=== PATIENT | female | born 1955 | race African-American/Black ===

== ENCOUNTER 2019-09-07 07:29 | Day surgery (SDC) | payer MEDICAID ==
[~2019-09-07] VITALS: Ht 170.2 cm; Wt 102.1 kg
[~2019-09-07 07:29] MED LIST: ACET-2708 PO; ASPI-1393 PO; ATOR10TA69 PO; BIOT5000 PO; CHLO25TA2 PO; CLON0.1T PO; DICL100G31 TP; LOSA100T32 PO; METF-414 PO; NAPR220T66 PO; RANI150T7 PO
[2019-09-07] MEDS ORDERED: CYCLOPENTOLATE HCL 1% OPHTH DROPS 2ML RIGHTEYE ONE (07:30)
[2019-09-07] MEDS ORDERED: TROPICAMIDE 1% OPHTH DROPS 15ML RIGHTEYE ONE (07:30)
[2019-09-07] MEDS ORDERED: PHENYLEPHRINE HCL 10% OPHTH DROPS 5ML RIGHTEYE ONE (07:30)
[2019-09-07] MEDS ORDERED: BALANCED SALT IRRIG SOLN 15ML ONE (08:00)
[2019-09-07] MEDS ORDERED: LIDOCAINE HCL/PF 2% 20 MG/ML 10ML VIAL ONE (08:00)
[2019-09-07] MEDS ORDERED: PREDNISOLONE ACETATE 1% OPHTH DROPS 5ML ONE (08:00)
[2019-09-07] MEDS ORDERED: TETRACAINE 0.5% OPHTH DROPS 4ML ONE (08:00)
[2019-09-07] MEDS ORDERED: CIPROFLOXACIN 0.3% OPHTH SOLN 2.5ML ONE (08:00)
[2019-09-07] MEDS ORDERED: LACTATED RINGERS 1,000 ML IV SCH (08:30)
[2019-09-07] MEDS ORDERED: HYALURONATE SODIUM 14 MG/ML 0.85ML SYRINGE IO ONE (09:14)
[2019-09-07] MEDS ORDERED: MIDAZOLAM HCL 2 MG/2 ML VIAL ONE (09:46)
[2019-09-07] MEDS ORDERED: BALANCED SALT IRRIG SOLN COMB1 500ML OP ONE (10:00)
== END 2019-09-07 11:00 | disposition home or self-care (01) ==
LOC: OR 07:29
PROVIDERS: ATTEND Ophthalmology
DX: E11.36 Type 2 diabetes mellitus with diabetic cataract (principal); H25.89 Other age-related cataract; I10 Essential (primary) hypertension; K21.9 Gastro-esophageal reflux disease without esophagitis; E78.00 Pure hypercholesterolemia, unspecified; E66.9 Obesity, unspecified; M17.0 Bilateral primary osteoarthritis of knee; Z79.84 Long term (current) use of oral hypoglycemic drugs; Z79.82 Long term (current) use of aspirin; Z79.899 Other long term (current) drug therapy; Z88.8 Allergy status to other drugs, medicaments and biological substances; Z68.35 Body mass index [BMI] 35.0-35.9, adult
CPT/HCPCS: 66984; 82962; J2250; J3490; V2632